=== PATIENT | female | born 1945 | race American Indian/Alaskan Native ===

== ENCOUNTER 2016-09-09 13:03 | Emergency (ER) | payer MEDICARE, OTHER ==
[2016-09-09] MEDS ORDERED: Sodium Chloride 0.9% 10 ML Syringe FLUSH PRN (13:17)
[2016-09-09] MEDS ORDERED: Dexamethasone 4 MG/ML SDV IVPUSH ONE (13:17)
--- NOTE | 2016-09-09 13:17 | EDM.PDOC ---
ED HPI GENERAL MEDICAL PROBLEM - General Chief Complaint: Neurological Problem Stated Complaint: Trigeminal neuralgia flare up Time Seen by Provider: 09/09/16 13:16 Source of Information: Reports: Patient, Family, Old records, RN, RN notes reviewed History Limitations: Reports: No limitations - History of Present Illness INITIAL COMMENTS - FREE TEXT/NARRATIVE: Arrives from home by POV with c/o severe Rt facial pain from an acute flare up of chronic trigeminal neuralgia. Pt follows with Dr. Loredo, who has referred her to [facility] for surgical tx due to failure of medical tx. This flare up began yesterday, and her home medications are not helping. Pt denies any other complaints. Pt reports the current Sx's are "exactly the same" as her usual trigeminal neuralgia flare ups. 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(s) Right Face Pain Score (Numeric/FACES): 10 - Related Data Allergies Allergy/AdvReac Type Severity Reaction Status Date / Time azithromycin Allergy Hives Verified 09/09/16 13:16 cephalexin Allergy Swelling Verified 09/09/16 13:16 levofloxacin [From Levaquin] Allergy Rash Verified 09/09/16 13:16 meperidine HCl [From Demerol] Allergy Airway Verified 09/09/16 13:16 Tightness Home Meds: Home Meds Gabapentin [Neurontin] 600 mg PO BID 10/31/13 [History] OXcarbazepine [Oxcarbazepine] 600 mg PO TID 10/31/13 [History] oxyCODONE 5 mg PO ASDIRECTED PRN 10/31/13 [History] traMADol [Ultram ER] 50 mg PO Q8HR PRN 10/31/13 [History] Omeprazole 20 mg PO DAILY 05/29/14 [History] ALPRAZolam [Alprazolam] 0.5 mg PO DAILY PRN 10/23/15 [History] Past Medical History HEENT History: Reports: None Cardiovascular History: Reports: None Respiratory History: Reports: None Gastrointestinal History: Reports: None 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 Musculoskeletal History: Reports: None Neurological History: Reports: Other (see below) Other Neuro History: trigeminal neuralgia Psychiatric History: Reports: None Endocrine/Metabolic History: Reports: None Hematologic History: Reports: None Immunologic History: Reports: None Oncologic (Cancer) History: Reports: None - Infectious Disease History Infectious Disease History: Reports: Measles - Past Surgical History GI Surgical History: Reports: Cholecystectomy, Hernia repair/other Neurological Surgical History: Reports: None Social & Family History - Family History Family Medical History: Noncontributory - Tobacco Use Smoking Status *Q: Never Smoker Second Hand Smoke Exposure: No - Alcohol Use Days Per Week of Alcohol Use: 0 - Recreational Drug Use Recreational Drug Use: No - Living Situation & Occupation Living situation: Reports: , with spouse Occupation: retired ED ROS GENERAL - Review of Systems Review Of Systems: ROS reveals no pertinent complaints other than HPI. ED EXAM, GENERAL - Physical Exam Exam: See Below Exam Limited By: Physical impairment (painful to speak) General Appearance: alert, WD/WN, anxious, moderate distress (due to pain) Eye Exam: bilateral eye: EOMI, normal inspection, PERRL Ears: normal external exam, hearing grossly normal Nose: normal inspection, normal mucosa, no blood Throat/Mouth: Normal inspection Head: atraumatic, normocephalic, facial tenderness (severe, acutely painful Rt face to light touch) Neck: normal inspection, supple, non-tender, full range of motion Respiratory/Chest: no respiratory distress, lungs clear, normal breath sounds, no accessory muscle use, chest non-tender Cardiovascular: regular rate, rhythm Neurological: alert, oriented, CN II-XII intact, normal cognition, normal gait Psychiatric: anxious, tearful Skin Exam: Warm, Dry, Intact, Normal color, No rash Course - Vital Signs Last Recorded V/S: Last Vital Signs Temp 36.2 C 09/09/16 13:18 Pulse 78 09/09/16 13:18 Resp 18 09/09/16 13:18 BP 161/86 H 09/09/16 13:18 Pulse Ox 96 09/09/16 13:18 - Orders/Labs/Meds Orders: Active Orders 24 hr Category Date Time Status Peripheral IV Care [RC] . DIRECTED Care 09/09/16 13:17 Active HYDROmorphone [Dilaudid] Med 09/09/16 15:30 Once 0.5 mg IVPUSH ONETIME ONE Sodium Chloride 0.9% [Saline Flush] Med 09/09/16 13:17 Active 10 ml FLUSH ASDIRECTED PRN Peripheral IV Insertion Adult [OM.PC] Stat Oth 09/09/16 13:17 Ordered Medication Orders Hydromorphone HCl (Dilaudid) 0.5 mg IVPUSH ONETIME ONE Stop: 09/09/16 15:31 Sodium Chloride (Saline Flush) 10 ml FLUSH ASDIRECTED PRN PRN Reason: Keep Vein Open Last Admin: 09/09/16 13:35 Dose: 10 ml Meds: Medications Generic Name Dose Route Start Last Admin Trade Name Freq PRN Reason Stop Dose Admin Hydromorphone HCl 0.5 mg 09/09/16 15:30 Dilaudid IVPUSH 09/09/16 15:31 ONETIME ONE Sodium Chloride 10 ml 09/09/16 13:17 09/09/16 13:35 Saline Flush FLUSH 10 ml ASDIRECTED PRN Administration Keep Vein Open Discontinued Medications Generic Name Dose Route Start Last Admin Trade Name Freq PRN Reason Stop Dose Admin Dexamethasone 10 mg 09/09/16 13:17 09/09/16 13:34 Dexamethasone IVPUSH 09/09/16 13:18 10 mg ONETIME ONE Administration Hydromorphone HCl 1 mg 09/09/16 13:18 09/09/16 13:30 Dilaudid IVPUSH 09/09/16 13:19 1 mg ONETIME ONE Administration Hydromorphone HCl 1 mg 09/09/16 13:58 09/09/16 14:02 Dilaudid IVPUSH 09/09/16 13:59 1 mg ONETIME ONE Administration Ketorolac Tromethamine 30 mg 09/09/16 14:44 09/09/16 14:52 Toradol IVPUSH 09/09/16 14:45 30 mg ONETIME ONE Administration Lidocaine HCl 15 ml 09/09/16 13:19 Xylocaine 2% Viscous PO 09/09/16 13:20 ONETIME ONE Lidocaine HCl 15 gm 09/09/16 13:19 Lidocaine 5% TOP 09/09/16 13:20 ONETIME ONE Ondansetron HCl 4 mg 09/09/16 14:44 09/09/16 14:52 Zofran IV 09/09/16 14:45 4 mg ONETIME ONE Administration Departure - Departure Time of Disposition: 16:00 Disposition: Home, Self-Care 01 Condition: fair Clinical Impression: Trigeminal neuralgia of right side of face, Trigeminal neuralgia pain Instructions: Trigeminal Neuralgia Forms: ED Department Discharge Additional Instructions: Follow up with Dr. Loredo and/or [facility] as planned. Return to ER pain is uncontrolled. - My Orders Last 24 Hours: My Active Orders 09/09/16 13:17 Peripheral IV Care [RC] . DIRECTED Sodium Chloride 0.9% [Saline Flush] 10 ml FLUSH ASDIRECTED PRN Peripheral IV Insertion Adult [OM.PC] Stat 09/09/16 15:30 HYDROmorphone [Dilaudid] 0.5 mg IVPUSH ONETIME ONE - Assessment/Plan Last 24 Hours: My Active Orders 09/09/16 13:17 Peripheral IV Care [RC] . DIRECTED Sodium Chloride 0.9% [Saline Flush] 10 ml FLUSH ASDIRECTED PRN Peripheral IV Insertion Adult [OM.PC] Stat 09/09/16 15:30 HYDROmorphone [Dilaudid] 0.5 mg IVPUSH ONETIME ONE
[2016-09-09] MEDS ORDERED: HYDROmorphone 1 MG/ML Syringe IVPUSH ONE ×3 (13:18→15:30)
[2016-09-09] MEDS ORDERED: Lidocaine 5% Oint 35.44 GM Tube TOP ONE (13:19)
[2016-09-09] MEDS ORDERED: Lidocaine 2% Viscous Solution 15 ML Cup PO ONE (13:19)
[2016-09-09] MEDS ORDERED: Ketorolac 30 MG/ML SDV IVPUSH ONE (14:44)
[2016-09-09] MEDS ORDERED: Ondansetron 4 MG/2 ML SDV IV ONE (14:44)
[2016-09-09 16:46] VITALS: BP 120/58
== END 2016-09-09 16:40 | disposition home or self-care (01) ==
LOC: DL.ED 13:03
DX: G50.0 Trigeminal neuralgia (principal); Z88.1 Allergy status to other antibiotic agents; Z88.8 Allergy status to other drugs, medicaments and biological substances; Z79.899 Other long term (current) drug therapy; Z90.49 Acquired absence of other specified parts of digestive tract
CPT/HCPCS: 96374; 96375; 96376; 99283; J1100; J1170; J1885; J2405; J7050; 99284; A9270-GY

== ENCOUNTER 2016-09-12 13:17 | Emergency (ER) | payer MEDICARE, OTHER ==
[2016-09-12] MEDS ORDERED: HYDROmorphone 1 MG/ML Syringe IVPUSH ONE ×3 (13:20→17:20)
[2016-09-12] MEDS ORDERED: Sodium Chloride 0.9% 10 ML Syringe FLUSH PRN (13:20)
[2016-09-12] MEDS ORDERED: Ketorolac 30 MG/ML SDV IVPUSH ONE (13:20)
--- NOTE | 2016-09-12 13:20 | EDM.PDOC ---
ED HPI NEURO - General Chief Complaint: Neuro Symptoms/Deficits Stated Complaint: teeth Time Seen by Provider: 09/12/16 13:19 Source of Information: Reports: Patient, Family, Old records, RN, RN notes reviewed History Limitations: Reports: No limitations - History of Present Illness INITIAL COMMENTS - FREE TEXT/NARRATIVE: Complaining of flare up of severe right face pain due to trigeminal neuralgia. Home meds are not helping. Patient has appointment with [facility] to have nerve surgery. Denies any new symptoms. Location (Neuro Complaint): Reports: face Severity: severe Improves with: Reports: None Worsens with: Reports: None Associated Symptoms: Reports: no other symptoms - Related Data Allergies/ADRs: Allergies Allergy/AdvReac Type Severity Reaction Status Date / Time azithromycin Allergy Hives Verified 09/09/16 13:16 cephalexin Allergy Swelling Verified 09/09/16 13:16 levofloxacin [From Levaquin] Allergy Rash Verified 09/09/16 13:16 meperidine HCl [From Demerol] Allergy Airway Verified 09/09/16 13:16 Tightness Home Meds: Home Meds Gabapentin [Neurontin] 600 mg PO BID 10/31/13 [History] OXcarbazepine [Oxcarbazepine] 600 mg PO TID 10/31/13 [History] oxyCODONE 5 mg PO ASDIRECTED PRN 10/31/13 [History] traMADol [Ultram ER] 50 mg PO Q8HR PRN 10/31/13 [History] Omeprazole 20 mg PO DAILY 05/29/14 [History] ALPRAZolam [Alprazolam] 0.5 mg PO DAILY PRN 10/23/15 [History] Past Medical History HEENT History: Reports: None Cardiovascular History: Reports: None Respiratory History: Reports: None Gastrointestinal History: Reports: None 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 Musculoskeletal History: Reports: None Neurological History: Reports: Other (see below) Other Neuro History: trigeminal neuralgia Psychiatric History: Reports: None Endocrine/Metabolic History: Reports: None Hematologic History: Reports: None Immunologic History: Reports: None Oncologic (Cancer) History: Reports: None - Infectious Disease History Infectious Disease History: Reports: Measles - Past Surgical History GI Surgical History: Reports: Cholecystectomy, Hernia repair/other Neurological Surgical History: Reports: None Social & Family History - Family History Family Medical History: Noncontributory - Tobacco Use Smoking Status *Q: Never Smoker Second Hand Smoke Exposure: No - Alcohol Use Days Per Week of Alcohol Use: 0 - Recreational Drug Use Recreational Drug Use: No - Living Situation & Occupation Living situation: Reports: , with spouse Occupation: retired ED ROS GENERAL - Review of Systems Review Of Systems: ROS reveals no pertinent complaints other than HPI. ED EXAM, NEURO - Physical Exam Exam: See Below Exam Limited By: No limitations General Appearance: obese (in acute distress secondary to pain at right face.) Eye Exam: bilateral eye: normal inspection Ears: normal external exam, normal canal, hearing grossly normal, normal TMs Nose: normal inspection, normal mucosa, no blood Throat/Mouth: Normal inspection, Normal lips, Normal teeth, Normal gums, Normal oropharynx, Normal voice, No airway compromise Head Exam: other (acute hypersensitive to touch or any tactile stimulant right face.) Neck: normal inspection, supple, non-tender, full range of motion Respiratory/Chest: no respiratory distress, lungs clear, normal breath sounds, no accessory muscle use, chest non-tender Cardiovascular: normal peripheral pulses, regular rate, rhythm, no edema, no gallop, no JVD, no murmur, no rub Neurological: other (other than right face as described in HEENT.) Back Exam: normal inspection, full range of motion, NT Extremities: normal inspection, normal range of motion, non-tender, no pedal edema, normal capillary refill Psychiatric: anxious, tearful Skin Exam: Warm Course - Vital Signs Last Recorded V/S: Last Vital Signs Temp 36.3 C 09/12/16 13:42 Pulse 96 09/12/16 13:42 Resp 20 09/12/16 13:42 BP 146/79 H 09/12/16 13:42 Pulse Ox 93 L 09/12/16 13:42 - Orders/Labs/Meds Orders: Active Orders 24 hr Category Date Time Status Peripheral IV Care [RC] . DIRECTED Care 09/12/16 13:21 Active Sodium Chloride 0.9% [Saline Flush] Med 09/12/16 13:20 Active 10 ml FLUSH ASDIRECTED PRN Peripheral IV Insertion Adult [OM.PC] Stat Oth 09/12/16 13:20 Ordered Medication Orders Sodium Chloride (Saline Flush) 10 ml FLUSH ASDIRECTED PRN PRN Reason: Keep Vein Open Last Admin: 09/12/16 14:12 Dose: 10 ml Meds: Medications Generic Name Dose Route Start Last Admin Trade Name Freq PRN Reason Stop Dose Admin Sodium Chloride 10 ml 09/12/16 13:20 09/12/16 14:12 Saline Flush FLUSH 10 ml ASDIRECTED PRN Administration Keep Vein Open Discontinued Medications Generic Name Dose Route Start Last Admin Trade Name Freq PRN Reason Stop Dose Admin Dexamethasone 10 mg 09/12/16 14:21 09/12/16 14:39 Dexamethasone IVPUSH 09/12/16 14:22 10 mg ONETIME ONE Administration Hydromorphone HCl 1 mg 09/12/16 13:20 09/12/16 14:06 Dilaudid IVPUSH 09/12/16 13:21 1 mg ONETIME ONE Administration Hydromorphone HCl 1 mg 09/12/16 14:21 09/12/16 15:12 Dilaudid IVPUSH 09/12/16 14:22 1 mg ONETIME ONE Administration Hydromorphone HCl 1 mg 09/12/16 17:20 09/12/16 17:49 Dilaudid IVPUSH 09/12/16 17:21 1 mg ONETIME ONE Administration Sodium Chloride 1,000 mls @ 999 mls/hr 09/12/16 13:44 09/12/16 14:11 Normal Saline IV 09/12/16 14:44 999 mls/hr .BOLUS ONE Administration Ketorolac Tromethamine 30 mg 09/12/16 13:20 09/12/16 14:11 Toradol IVPUSH 09/12/16 13:21 30 mg ONETIME ONE Administration Ondansetron HCl 4 mg 09/12/16 17:19 09/12/16 17:47 Zofran IV 09/12/16 17:20 4 mg ONETIME ONE Administration Phenytoin Sodium 250 mg 09/12/16 17:20 09/12/16 17:52 Phenytoin IVPUSH 09/12/16 17:21 250 mg ONETIME ONE Administration Departure - Departure Time of Disposition: 18:47 Disposition: Home, Self-Care 01 Condition: fair Clinical Impression: Trigeminal neuralgia of right side of face Instructions: Trigeminal Neuralgia Forms: ED Department Discharge Additional Instructions: Dilaudid 2mg. Follow up with your specialist as planned. - My Orders Last 24 Hours: My Active Orders 09/12/16 13:20 Sodium Chloride 0.9% [Saline Flush] 10 ml FLUSH ASDIRECTED PRN Peripheral IV Insertion Adult [OM.PC] Stat 09/12/16 13:21 Peripheral IV Care [RC] . DIRECTED - Assessment/Plan Last 24 Hours: My Active Orders 09/12/16 13:20 Sodium Chloride 0.9% [Saline Flush] 10 ml FLUSH ASDIRECTED PRN Peripheral IV Insertion Adult [OM.PC] Stat 09/12/16 13:21 Peripheral IV Care [RC] . DIRECTED
[2016-09-12 13:44] VITALS: BP 146/79
[2016-09-12] MEDS ORDERED: Sodium Chloride 0.9% 1,000 ML IV ONE (13:44)
[2016-09-12] MEDS ORDERED: Dexamethasone 4 MG/ML SDV IVPUSH ONE (14:21)
[2016-09-12] MEDS ORDERED: Ondansetron 4 MG/2 ML SDV IV ONE (17:19)
[2016-09-12] MEDS ORDERED: Phenytoin 250 MG/5 ML SDV IVPUSH ONE (17:20)
== END 2016-09-12 19:03 | disposition home or self-care (01) ==
LOC: DL.ED 13:17
DX: G50.0 Trigeminal neuralgia (principal); Z79.899 Other long term (current) drug therapy; Z90.49 Acquired absence of other specified parts of digestive tract; Z88.1 Allergy status to other antibiotic agents; Z88.8 Allergy status to other drugs, medicaments and biological substances
CPT/HCPCS: 96361; 96374; 96375; 96376; 99284; J1100; J1165; J1170; J1885; J2405; J7030; J7050

== ENCOUNTER 2016-09-13 00:50 | Emergency (ER) | payer MEDICARE, OTHER ==
[2016-09-13 01:05] VITALS: BP 135/85
[2016-09-13] MEDS ORDERED: LORazepam 2 MG/ML Syringe IVPUSH ONE (01:21)
[2016-09-13] MEDS ORDERED: HYDROmorphone 1 MG/ML Syringe IVPUSH ONE (01:21)
--- NOTE | 2016-09-13 01:24 | EDM.PDOC ---
ED HPI NEURO - General Chief Complaint: Neurological Problem Stated Complaint: GENERAL NEURALGIA ATTACK, [id number] Time Seen by Provider: 09/13/16 01:19 Source of Information: Reports: Patient, Family () History Limitations: Reports: No limitations - History of Present Illness INITIAL COMMENTS - FREE TEXT/NARRATIVE: 71 yo white female w/ PMHx. Right side facial Trigeminal Neuralgia. Pt. seen in this ED @ 2pm on Wednesday and treated w/ multiple medications. Symptoms returned late in PM. Symptom Onset Date: 09/13/16 Symptom Onset Time: 19:00 Timing/Duration: Reports: Hour(s): Location (Neuro Complaint): Reports: face (right side) Quality (Neuro Complaint): Reports: altered sensation, other (pain to right side of face) Worsens with: Reports: Movement Associated Symptoms: Reports: no other symptoms - Related Data Allergies/ADRs: Allergies Allergy/AdvReac Type Severity Reaction Status Date / Time azithromycin Allergy Hives Verified 09/13/16 01:01 cephalexin Allergy Swelling Verified 09/13/16 01:01 levofloxacin [From Levaquin] Allergy Rash Verified 09/13/16 01:01 meperidine HCl [From Demerol] Allergy Airway Verified 09/13/16 01:01 Tightness Home Meds: Home Meds Gabapentin [Neurontin] 600 mg PO BID 10/31/13 [History] OXcarbazepine [Oxcarbazepine] 600 mg PO TID 10/31/13 [History] oxyCODONE 5 mg PO ASDIRECTED PRN 10/31/13 [History] traMADol [Ultram ER] 50 mg PO Q8HR PRN 10/31/13 [History] Omeprazole 20 mg PO DAILY 05/29/14 [History] ALPRAZolam [Alprazolam] 0.5 mg PO DAILY PRN 10/23/15 [History] Past Medical History HEENT History: Reports: None Cardiovascular History: Reports: None Respiratory History: Reports: None Gastrointestinal History: Reports: None 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 Musculoskeletal History: Reports: None Neurological History: Reports: Other (see below) Other Neuro History: trigeminal neuralgia Psychiatric History: Reports: None Endocrine/Metabolic History: Reports: None Hematologic History: Reports: None Immunologic History: Reports: None Oncologic (Cancer) History: Reports: None - Infectious Disease History Infectious Disease History: Reports: Measles - Past Surgical History GI Surgical History: Reports: Cholecystectomy, Hernia repair/other Neurological Surgical History: Reports: None Social & Family History - Family History Family Medical History: Noncontributory - Tobacco Use Smoking Status *Q: Never Smoker Second Hand Smoke Exposure: No - Alcohol Use Days Per Week of Alcohol Use: 0 - Recreational Drug Use Recreational Drug Use: No - Living Situation & Occupation Living situation: Reports: , with spouse Occupation: retired ED ROS GENERAL - Review of Systems Review Of Systems: See Below Constitutional: Reports: no symptoms HEENT: Reports: Other (right sided facial pain) Respiratory: Reports: No Symptoms Cardiovascular: Reports: No symptoms Endocrine: Reports: no symptoms GI/Abdominal: Reports: No symptoms : Reports: no symptoms Musculoskeletal: Reports: other (right side face pain) Skin: Reports: no symptoms Neurological: Reports: Other (right side face pain) Psychiatric: Reports: No symptoms Hematologic/Lymphatic: Reports: no symptoms Immunologic: Reports: no symptoms ED EXAM, NEURO - Physical Exam Exam: See Below Exam Limited By: No limitations General Appearance: alert, no apparent distress Eye Exam: bilateral eye: PERRL Ears: normal external exam Nose: normal inspection Throat/Mouth: Normal inspection Head Exam: atraumatic Neck: normal inspection Respiratory/Chest: no respiratory distress Cardiovascular: normal peripheral pulses, regular rate, rhythm GI/Abdominal: normal bowel sounds Neurological: alert, other (right side face pain on palpation) Back Exam: normal inspection Extremities: normal inspection Psychiatric: normal affect Skin Exam: Warm, Normal color, No rash Course - Vital Signs Last Recorded V/S: Last Vital Signs Temp 36.4 C 09/13/16 01:01 Pulse 90 09/13/16 01:01 Resp 20 09/13/16 01:01 BP 135/85 09/13/16 01:01 Pulse Ox 97 09/13/16 01:01 Departure - Departure Time of Disposition: 01:28 Disposition: DC/Tfer to Acute Hospital 02 Condition: fair Clinical Impression: Trigeminal neuralgia of right side of face Forms: ED Department Discharge, Interfacility Transfer [facility]
[2016-09-13] MEDS ORDERED: Sodium Chloride 0.9% 1,000 ML IV SCH (01:30)
== END 2016-09-13 01:57 ==
LOC: DL.ED 00:50
DX: G50.0 Trigeminal neuralgia (principal); Z79.899 Other long term (current) drug therapy; Z88.1 Allergy status to other antibiotic agents; Z88.6 Allergy status to analgesic agent
CPT/HCPCS: 96374; 96375; 99284; J1170; J2060; J7030; 99285

== ENCOUNTER 2016-09-21 14:08 | Observation (INO) | payer MEDICARE, OTHER ==
[2016-09-21] MEDS ORDERED: HYDROmorphone 1 MG/ML Syringe IVPUSH ONE (14:38)
--- NOTE | 2016-09-21 15:19 | EDM.PDOC ---
ED HPI GENERAL MEDICAL PROBLEM - General Chief Complaint: General Stated Complaint: [id number] EXTREME PAIN Time Seen by Provider: 09/21/16 15:00 Source of Information: Reports: Patient, Family History Limitations: Reports: No limitations - History of Present Illness INITIAL COMMENTS - FREE TEXT/NARRATIVE: This 71 yo female patient reports to the ED with right sided Trigeminal Neuralgia pain. The patient has been seen multiple times for her pain and has been previously managed by Dr. Loredo. The patient reports she was transferred to [place] last week and is scheduled for a neurosurg consult on of this week. The patient has been taking her home medications, but has not been able to control her symptoms. 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 medication(s) Right Face Pain Score (Numeric/FACES): 10 - Related Data Allergies Allergy/AdvReac Type Severity Reaction Status Date / Time azithromycin Allergy Hives Verified 09/13/16 01:01 cephalexin Allergy Swelling Verified 09/13/16 01:01 levofloxacin [From Levaquin] Allergy Rash Verified 09/13/16 01:01 meperidine HCl [From Demerol] Allergy Airway Verified 09/13/16 01:01 Tightness Home Meds: Home Meds Gabapentin [Neurontin] 600 mg PO BID 10/31/13 [History] OXcarbazepine [Oxcarbazepine] 600 mg PO TID 10/31/13 [History] oxyCODONE 5 mg PO ASDIRECTED PRN 10/31/13 [History] traMADol [Ultram ER] 50 - 100 mg PO Q8HR PRN 10/31/13 [History] Omeprazole 20 mg PO DAILY 05/29/14 [History] ALPRAZolam [Alprazolam] 0.5 mg PO DAILY PRN 10/23/15 [History] Cefdinir [Cefdinir] 300 mg PO BID 09/21/16 [History] Levofloxacin [Levofloxacin] 500 mg PO DAILY 09/21/16 [History] Potassium 1 tab PO DAILY 09/21/16 [History] Past Medical History HEENT History: Reports: None Cardiovascular History: Reports: None Respiratory History: Reports: None Gastrointestinal History: Reports: None 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 Musculoskeletal History: Reports: None Neurological History: Reports: Other (see below) Other Neuro History: trigeminal neuralgia Psychiatric History: Reports: None Endocrine/Metabolic History: Reports: None Hematologic History: Reports: None Immunologic History: Reports: None Oncologic (Cancer) History: Reports: None - Infectious Disease History Infectious Disease History: Reports: Measles - Past Surgical History GI Surgical History: Reports: Cholecystectomy, Hernia repair/other Neurological Surgical History: Reports: None Social & Family History - Family History Family Medical History: Noncontributory - Tobacco Use Smoking Status *Q: Never Smoker Second Hand Smoke Exposure: No - Alcohol Use Days Per Week of Alcohol Use: 0 - Recreational Drug Use Recreational Drug Use: No - Living Situation & Occupation Living situation: Reports: , with spouse Occupation: retired ED ROS GENERAL - Review of Systems Review Of Systems: ROS reveals no pertinent complaints other than HPI. ED EXAM, GENERAL - Physical Exam Exam: See Below Exam Limited By: Other General Appearance: alert, WD/WN, severe distress Eye Exam: bilateral eye: EOMI, normal inspection, PERRL Ears: normal external exam, normal canal, hearing grossly normal, normal TMs Nose: normal inspection, normal mucosa, no blood Throat/Mouth: Normal inspection, Normal lips, Normal teeth, Normal gums, Normal oropharynx, Normal voice, No airway compromise Head: atraumatic, normocephalic Neck: normal inspection, supple, non-tender, full range of motion Respiratory/Chest: no respiratory distress, lungs clear, normal breath sounds, no accessory muscle use, chest non-tender Cardiovascular: normal peripheral pulses, regular rate, rhythm, no edema, no gallop, no JVD, no murmur, no rub GI/Abdominal: normal bowel sounds, soft, non tender, no organomegaly, no distention, no abnormal bruit, no mass (Female) Exam: Deferred Rectal (Female) Exam: Deferred Back Exam: normal inspection, full range of motion, NT Extremities: normal inspection, normal range of motion, non-tender, normal capillary refill, no pedal edema Neurological: alert, oriented, normal cognition, other (Trigeminal Neuralgia) Psychiatric: anxious, tearful Skin Exam: Warm, Dry, Intact, Normal color, No rash Lymphatic: no adenopathy Course - Vital Signs Last Recorded V/S: Last Vital Signs Temp 36.0 C 09/21/16 14:48 Pulse 87 09/21/16 14:48 Resp 16 09/21/16 14:48 BP 150/104 H 09/21/16 14:48 Pulse Ox 92 L 09/21/16 14:48 - Orders/Labs/Meds Meds: Medications Discontinued Medications Generic Name Dose Route Start Last Admin Trade Name Freq PRN Reason Stop Dose Admin Hydromorphone HCl 1 mg 09/21/16 14:38 09/21/16 14:42 Dilaudid IVPUSH 09/21/16 14:39 1 mg ONETIME ONE Administration - Re-Assessments/Exams Free Text/Narrative Re-Assessment/Exam: 09/21/16 15:23 While the patient was in the ED, a consult call was made to Dr. Loredo ( Neruologist with [facility] in [place]). Dr. Loredo advised that the patient has failed medical treatment and is supposed to be seen by Neurosurgery in [facility]). Departure - Departure Time of Disposition: 15:21 Disposition: Admitted As Inpatient 65 Condition: serious Clinical Impression: Trigeminal neuralgia of right side of face Forms: ED Department Discharge Care Plan Goals: Discussed the examination, history and treatments with Dr. Muñoz. Dr. Muñoz accepted the patient for pain management until further neurosurgical appointments can be made.
[2016-09-21] MEDS ORDERED: Ondansetron 4 MG Tab.DIS PO PRN (15:41)
[2016-09-21] MEDS ORDERED: Ondansetron 4 MG/2 ML SDV IVPUSH PRN (15:41)
[2016-09-21] MEDS ORDERED: Zolpidem 5 MG Tab PO PRN (15:41)
[2016-09-21] MEDS ORDERED: TRAMADOL 50 MG PO PRN (15:44)
[2016-09-21] MEDS ORDERED: ALPRAZolam 0.5 MG Tab PO PRN (15:44)
--- NOTE | 2016-09-21 15:53 | PCM.PN ---
- General Info Date of Service: 09/21/16 Admission Dx/Problem (Free Text): 71-year-old lady with a history of trigeminal neuralgia. The patient has been treated for many years and but in the past few weeks the pain has been getting worse She tried outpatient management but subsequently was admitted to the hospital in [place]. She was seen by Dr. Loredo who recommended a surgical evaluation. this was set up to be done in [place] next . The patient has been trying to oral medications at home but the pain has been severe. The pain is particularly bad during the night, with movements, has difficulty eating due to the pain The pain is sharp radiating to the right lower jaw. No associated nausea vomiting. The pain is somewhat better with pain medications but the patient came in with uncontrolled pain to the emergency room she has received IV Dilaudid and that helps somewhat with the pain Functional Status: Denies: pain controlled, tolerating diet - Review of Systems General: Denies: Fever Pulmonary: Denies: shortness of breath Cardiovascular: Denies: Chest Pain, Edema Neurological: Denies: Confusion - Patient Data Vitals - most recent: Last Vital Signs Temp 36.0 C 09/21/16 14:48 Pulse 87 09/21/16 14:48 Resp 16 09/21/16 14:48 BP 150/104 H 09/21/16 14:48 Pulse Ox 92 L 09/21/16 14:48 Weight - most recent: 83.915 kg Med Orders - Current: Current Medications Alprazolam (Xanax) 0.5 mg PO DAILY PRN PRN Reason: Anxiety Gabapentin (Neurontin) 600 mg PO BID [facility] Heparin Sodium (Porcine) (Heparin Sodium) 5,000 units SUBCUT Q8HR [facility] Hydromorphone HCl (Dilaudid) 0.5 mg IVPUSH Q4H PRN PRN Reason: Pain (severe 7-10) Levofloxacin (Levaquin) 500 mg PO DAILY [facility] Non-Formulary Medication (Oxcarbazepine [Oxcarbazepine]) 600 mg PO TID [facility] Non-Formulary Medication (Potassium [Potassium]) 1 tab PO DAILY [facility] Non-Formulary Medication (Oxycodone) 5 mg PO Q4HR PRN PRN Reason: Breakthrough Pain Non-Formulary Medication (Tramadol [Ultram Er]) 50 mg PO Q8HR PRN PRN Reason: moderate pain Omeprazole (Omeprazole) 20 mg PO DAILY [facility] Ondansetron HCl (Zofran Odt) 4 mg PO Q6H PRN PRN Reason: nausea, able to take PO Ondansetron HCl (Zofran) 4 mg IVPUSH Q6H PRN PRN Reason: Nausea/Vomiting Sodium Chloride (Saline Flush) 10 ml FLUSH ASDIRECTED PRN PRN Reason: Keep Vein Open Zolpidem Tartrate (Ambien) 5 mg PO BEDTIME PRN PRN Reason: Sleep Discontinued Medications Hydromorphone HCl (Dilaudid) 1 mg IVPUSH ONETIME ONE Stop: 09/21/16 14:39 Last Admin: 09/21/16 14:42 Dose: 1 mg - Exam General: alert, oriented HEENT: Other (right lower jaw is sensitive to touch but not red, ) Neck: supple Lungs: Clear to auscultation Cardiovascular: Regular Rate, Regular Rhythm Abdomen: bowel sounds present, soft, no tenderness, no distension Extremities: no edema Skin: warm, dry, intact Neurological: no new focal deficit Psy/Mental Status: alert, normal affect, normal mood - Problem List & Annotations (1) Trigeminal neuralgia of right side of face SNOMED Code(s): 87072314 Code(s): G50.0 - TRIGEMINAL NEURALGIA Status: Acute Current Visit: Yes - Problem List Review Problem List Initiated/Reviewed/Updated: Yes - My Orders Last 24 Hours: My Active Orders 09/21/16 15:41 Patient Status [ADT] Routine Oxygen Therapy [RC] PRN Up With Assistance [RC] ASDIRECTED VTE/DVT Education [RC] PER UNIT ROUTINE Vital Signs [RC] Q4H HYDROmorphone [Dilaudid] 0.5 mg IVPUSH Q4H PRN Ondansetron [Zofran ODT] 4 mg PO Q6H PRN Ondansetron [Zofran] 4 mg IVPUSH Q6H PRN Sodium Chloride 0.9% [Saline Flush] 10 ml FLUSH ASDIRECTED PRN Zolpidem [Ambien] 5 mg PO BEDTIME PRN Peripheral IV Insertion Adult [OM.PC] Routine Saline Lock Insert [OM.PC] Routine Resuscitation Status Routine 09/21/16 15:42 Antiembolic Hose [OM.PC] Per Unit Routine 09/21/16 15:43 Antiembolic Devices [RC] PER UNIT ROUTINE Peripheral IV Care [RC] . DIRECTED 09/21/16 15:44 ALPRAZolam [Xanax] 0.5 mg PO DAILY PRN oxyCODONE 5 mg PO Q4HR PRN traMADol [Ultram ER] 50 mg PO Q8HR PRN 09/21/16 21:00 Gabapentin [Neurontin] 600 mg PO BID OXcarbazepine [Oxcarbazepine] 600 mg PO TID 09/21/16 22:00 Heparin Sodium 5,000 units SUBCUT Q8HR 09/21/16 Dinner Mechanical Soft Diet [DIET] 09/22/16 05:15 BASIC METABOLIC PANEL,BMP [CHEM] AM CBC WITH AUTO DIFF [HEME] AM 09/22/16 09:00 Levofloxacin [Levaquin] 500 mg PO DAILY Omeprazole 20 mg PO DAILY Potassium [Potassium] 1 tab PO DAILY - Assessment Assessment:: 1 trigeminal neuralgia with uncontrolled pain We'll admit the patient and to try to improve her pain control Use IV Dilaudid as needed Continue p.r.n. oral oxycodone and the Ultram Continue with Neurontin, Oxycarbamazepine 2. the patient is scheduled to followup with surgery on in [place] 3. DVT prophylaxis will be a subcutaneous heparin
--- NOTE | 2016-09-21 15:56 | PCM.HP ---
H&P History of Present Illness - General Date of Service: 09/21/16 Admit Problem/Dx: 71-year-old lady with a history of trigeminal neuralgia. Source of Information: Patient, Family - History of Present Illness Initial Comments - Free Text/Narative: The patient has been treated for many years and but in the past few weeks the pain has been getting worse She tried outpatient management but subsequently was admitted to the hospital in [place]. She was seen by Dr. Loredo who recommended a surgical evaluation. this was set up to be done in [place] next . The patient has been trying to oral medications at home but the pain has been severe. The pain is particularly bad during the night, with movements, has difficulty eating due to the pain The pain is sharp radiating to the right lower jaw. No associated nausea vomiting. The pain is somewhat better with pain medications but the patient came in with uncontrolled pain to the emergency room she has received IV Dilaudid and that helps somewhat with the pain Right Face Pain Score (Numeric/FACES): 10 - Related Data Allergies/Adverse Reactions: Allergies Allergy/AdvReac Type Severity Reaction Status Date / Time azithromycin Allergy Hives Verified 09/13/16 01:01 cephalexin Allergy Swelling Verified 09/13/16 01:01 levofloxacin [From Levaquin] Allergy Rash Verified 09/13/16 01:01 meperidine HCl [From Demerol] Allergy Airway Verified 09/13/16 01:01 Tightness Home Medications: Home Meds Gabapentin [Neurontin] 600 mg PO BID 10/31/13 [History] OXcarbazepine [Oxcarbazepine] 600 mg PO TID 10/31/13 [History] oxyCODONE 5 mg PO ASDIRECTED PRN 10/31/13 [History] traMADol [Ultram ER] 50 - 100 mg PO Q8HR PRN 10/31/13 [History] Omeprazole 20 mg PO DAILY 05/29/14 [History] ALPRAZolam [Alprazolam] 0.5 mg PO DAILY PRN 10/23/15 [History] Cefdinir [Cefdinir] 300 mg PO BID 09/21/16 [History] Levofloxacin [Levofloxacin] 500 mg PO DAILY 09/21/16 [History] Potassium 1 tab PO DAILY 09/21/16 [History] Past Medical History HEENT History: Reports: Cataract, Other (see below) Other HEENT History: dry eyes Cardiovascular History: Reports: None Respiratory History: Reports: None Gastrointestinal History: Reports: None [employer] History: Reports: Musculoskeletal History: Reports: None Neurological History: Reports: Other (see below) Other Neuro History: trigeminal neuralgia Psychiatric History: Reports: None Endocrine/Metabolic History: Reports: None Hematologic History: Reports: None Immunologic History: Reports: None Oncologic (Cancer) History: Reports: None - Infectious Disease History Infectious Disease History: Reports: Measles - Past Surgical History HEENT Surgical History: Reports: Cataract surgery GI Surgical History: Reports: Cholecystectomy, Hernia repair/other Neurological Surgical History: Reports: None Social & Family History - Family History Family Medical History: Noncontributory - Tobacco Use Smoking Status *Q: Never Smoker Second Hand Smoke Exposure: No - Alcohol Use Days Per Week of Alcohol Use: 0 - Recreational Drug Use Recreational Drug Use: No - Living Situation & Occupation Living situation: Reports: , with spouse Occupation: retired H&P Review of Systems - Review of Systems: Review Of Systems: See Below General: Denies: fever HEENT: Denies: vertigo Pulmonary: Denies: Shortness of Breath Cardiovascular: Denies: chest pain Gastrointestinal: Denies: Abdominal pain Musculoskeletal: Denies: neck pain Psychiatric: Denies: confusion, depression Exam - Exam Exam: See Below - Vital Signs Vital Signs: Last Vital Signs Temp 36.0 C 09/21/16 14:48 Pulse 87 09/21/16 14:48 Resp 16 09/21/16 14:48 BP 150/104 H 09/21/16 14:48 Pulse Ox 92 L 09/21/16 14:48 Weight: 83.915 kg - Exam General: alert, oriented HEENT: Other (tenderness to right jaw) Neck: supple, trachea midline, 2 Lungs: Clear to auscultation, Normal respiratory effort Cardiovascular: regular rate, regular rhythm Abdomen: normal bowel sounds, soft Extremities: 3, normal inspection, 10 Skin: warm, dry, intact Neurological: other (right jaw area tenderness to touch) Neuro Extensive - Mental Status: alert, oriented x3, normal mood/affect, normal cognition Psychiatric: alert, normal affect, normal mood *Q Meaningful Use (ADM) - VTE *Q VTE Criteria *Q: - Stroke *Q Stroke Criteria *Q: - AMI *Q AMI Criteria *Q: - Problem List (1) Trigeminal neuralgia of right side of face SNOMED Code(s): 41262990 ICD Code: G50.0 - TRIGEMINAL NEURALGIA Status: Acute Current Visit: Yes Problem List Initiated/Reviewed/Updated: Yes Orders Last 24hrs: Active Orders 24 hr Category Date Time Status Patient Status [ADT] Routine ADT 09/21/16 15:41 Ordered Antiembolic Devices [RC] PER UNIT ROUTINE Care 09/21/16 15:43 Ordered Oxygen Therapy [RC] PRN Care 09/21/16 15:41 Ordered Peripheral IV Care [RC] . DIRECTED Care 09/21/16 15:43 Ordered Up With Assistance [RC] ASDIRECTED Care 09/21/16 15:41 Ordered VTE/DVT Education [RC] PER UNIT ROUTINE Care 09/21/16 15:41 Ordered Vital Signs [RC] Q4H Care 09/21/16 15:41 Ordered Mechanical Soft Diet [DIET] Diet 09/21/16 Dinner Ordered BASIC METABOLIC PANEL,BMP [CHEM] AM Lab 09/22/16 05:15 Ordered CBC WITH AUTO DIFF [HEME] AM Lab 09/22/16 05:15 Ordered ALPRAZolam [Xanax] Med 09/21/16 15:44 Ordered 0.5 mg PO DAILY PRN Gabapentin [Neurontin] Med 09/21/16 21:00 Ordered 600 mg PO BID HYDROmorphone [Dilaudid] Med 09/21/16 15:41 Ordered 0.5 mg IVPUSH Q4H PRN Heparin Sodium Med 09/21/16 22:00 Ordered 5,000 units SUBCUT Q8HR Levofloxacin [Levaquin] Med 09/22/16 09:00 Ordered 500 mg PO DAILY OXcarbazepine [Oxcarbazepine] Med 09/21/16 21:00 Ordered 600 mg PO TID Omeprazole Med 09/22/16 09:00 Ordered 20 mg PO DAILY Ondansetron [Zofran ODT] Med 09/21/16 15:41 Ordered 4 mg PO Q6H PRN Ondansetron [Zofran] Med 09/21/16 15:41 Ordered 4 mg IVPUSH Q6H PRN Potassium [Potassium] Med 09/22/16 09:00 Ordered 1 tab PO DAILY Sodium Chloride 0.9% [Saline Flush] Med 09/21/16 15:41 Ordered 10 ml FLUSH ASDIRECTED PRN Zolpidem [Ambien] Med 09/21/16 15:41 Ordered 5 mg PO BEDTIME PRN oxyCODONE Med 09/21/16 15:44 Ordered 5 mg PO Q4HR PRN traMADol [Ultram ER] Med 09/21/16 15:44 Ordered 50 mg PO Q8HR PRN Antiembolic Hose [OM.PC] Per Unit Routine Oth 09/21/16 15:42 Ordered Peripheral IV Insertion Adult [OM.PC] Routine Oth 09/21/16 15:41 Ordered Saline Lock Insert [OM.PC] Routine Oth 09/21/16 15:41 Ordered Resuscitation Status Routine Resus Stat 09/21/16 15:41 Ordered Medication Orders Alprazolam (Xanax) 0.5 mg PO DAILY PRN PRN Reason: Anxiety Gabapentin (Neurontin) 600 mg PO BID [facility] Heparin Sodium (Porcine) (Heparin Sodium) 5,000 units SUBCUT Q8HR [facility] Hydromorphone HCl (Dilaudid) 0.5 mg IVPUSH Q4H PRN PRN Reason: Pain (severe 7-10) Levofloxacin (Levaquin) 500 mg PO DAILY [facility] Non-Formulary Medication (Potassium [Potassium]) 1 tab PO DAILY [facility] Non-Formulary Medication (Oxycodone) 5 mg PO Q4HR PRN PRN Reason: Breakthrough Pain Non-Formulary Medication (Tramadol [Ultram Er]) 50 mg PO Q8HR PRN PRN Reason: moderate pain Omeprazole (Omeprazole) 20 mg PO DAILY [facility] Ondansetron HCl (Zofran Odt) 4 mg PO Q6H PRN PRN Reason: nausea, able to take PO Ondansetron HCl (Zofran) 4 mg IVPUSH Q6H PRN PRN Reason: Nausea/Vomiting Oxcarbazepine (Trileptal) 600 mg PO TID [facility] Sodium Chloride (Saline Flush) 10 ml FLUSH ASDIRECTED PRN PRN Reason: Keep Vein Open Zolpidem Tartrate (Ambien) 5 mg PO BEDTIME PRN PRN Reason: Sleep Assessment/Plan Comment:: 1 trigeminal neuralgia with uncontrolled pain We'll admit the patient and to try to improve her pain control Use IV Dilaudid as needed Continue p.r.n. oral oxycodone and the Ultram Continue with Neurontin, Oxycarbamazepine 2. the patient is scheduled to followup with surgery on in [place] 3. recent pneumonia Continue levofloxacin 4. DVT prophylaxis will be a subcutaneous heparin
[2016-09-21] MEDS ORDERED: Polyethylene Glycol 3350 Powder 17 GM Packet PO PRN (16:11)
[2016-09-21] MEDS: HYDROmorphone 1 MG/ML Syringe IVPUSH PRN ×2 (16:31→20:32)
[2016-09-21] MEDS: Sodium Chloride 0.9% 10 ML Syringe FLUSH PRN ×2 (16:32→20:31)
[2016-09-21] MEDS: OXcarbazepine 300 MG Tab PO SCH ×2 (16:38→21:12)
[2016-09-21] MEDS: Gabapentin 300 MG Cap PO SCH (16:38)
[2016-09-21] MEDS: traMADol 50 MG Tab PO PRN (16:47)
[2016-09-21] MEDS: oxyCODONE 5 MG Tab PO PRN ×2 (18:46→23:04)
[2016-09-21] MEDS: Heparin Sodium 5,000 Units/ML Vial SUBCUT SCH (21:12)
[2016-09-22] MEDS: Gabapentin 300 MG Cap PO SCH ×2 (04:12→15:57)
[2016-09-22] MEDS: traMADol 50 MG Tab PO PRN ×2 (04:13→15:56)
[2016-09-22] MEDS: oxyCODONE 5 MG Tab PO PRN ×4 (04:32→18:00)
[2016-09-22] MEDS: Heparin Sodium 5,000 Units/ML Vial SUBCUT SCH ×3 (05:41→21:12)
[2016-09-22] MEDS: HYDROmorphone 1 MG/ML Syringe IVPUSH PRN ×2 (05:42→11:21)
[2016-09-22] MEDS: Sodium Chloride 0.9% 10 ML Syringe FLUSH PRN ×2 (05:43→11:23)
[2016-09-22] MEDS: Omeprazole 20 MG Cap.CR PO SCH ×2 (05:46→06:34)
[2016-09-22 07:00] LABS: CHLORIDE,CL 101 mmol/L (101-111); SODIUM,NA 135 mmol/L (135-145)
[2016-09-22] MEDS ORDERED: Non-Formulary Medication 1 Each (Potassium [Potassium] 1 TAB) PO SCH (09:00)
[2016-09-22] MEDS: OXcarbazepine 300 MG Tab PO SCH ×3 (09:25→21:08)
[2016-09-22] MEDS: Potassium Chloride 10 MEQ Tab.ER PO SCH (09:25)
[2016-09-22] MEDS: Levofloxacin 500 MG Tab PO SCH (09:25)
--- NOTE | 2016-09-22 10:59 | PCM.PN ---
- General Info Date of Service: 09/22/16 Admission Dx/Problem (Free Text): 71-year-old lady with a history of trigeminal neuralgia presented with intolerable r. jaw pain. Subjective Update: the r. jaw pain has improved from"15" to "9" was able to sleep eating better no associated H/A, no fever pain has been acute on chronic better with IV Dilaudid using ultram and oxycodone, PO dilaudid did not work Functional Status: Reports: tolerating diet - Review of Systems General: Denies: Fever HEENT: Denies: headaches Pulmonary: Denies: shortness of breath Cardiovascular: Denies: Chest Pain Gastrointestinal: Denies: Abdominal pain Genitourinary: Denies: dysuria Neurological: Denies: Confusion, Dizziness - Patient Data Vitals - most recent: Last Vital Signs Temp 37.0 C 09/22/16 07:00 Pulse 66 09/22/16 07:00 Resp 20 09/22/16 07:00 BP 121/66 09/22/16 07:00 Pulse Ox 93 L 09/22/16 07:00 Weight - most recent: 80.966 kg I&O - last 24 hours: Intake & Output 09/21/16 09/22/16 09/22/16 22:59 06:59 14:59 Intake Total 100 800 Balance 100 800 Lab Results last 24 hrs: Laboratory Results - last 24 hr 09/22/16 09/22/16 Range/Units 06:25 06:25 WBC 5.8 (5.0-10.0) 10^3/uL RBC 4.24 (4.2-5.4) 10^6/uL Hgb 12.4 (12.0-16.0) g/dL Hct 39.1 (37.0-47.0) % MCV 92.2 (80-100) fL MCH 29.2 (27.0-34.0) pg MCHC 31.7 L (33.0-35.0) g/dL Plt Count 184 (150-450) 10^3/uL Neut % (Auto) 48.1 (42.2-75.2) % Lymph % (Auto) 32.5 (20.5-50.1) % [place] % (Auto) 14.3 H (2-8) % Eos % (Auto) 4.8 H (1.0-3.0) % Baso % (Auto) 0.3 (0.0-1.0) % Sodium 135 (135-145) mmol/L Potassium 4.1 (3.6-5.0) mmol/L Chloride 101 (101-111) mmol/L Carbon Dioxide 30.0 (21.0-31.0) mmol/L Anion Gap 8.1 BUN 13 (7-18) mg/dL Creatinine 0.6 (0.6-1.3) mg/dL Est Cr Clr Drug Dosing TNP Estimated GFR (MDRD) > 60 Glucose 91 (74-105) mg/dL Calcium 8.8 (8.4-10.2) mg/dl Med Orders - Current: Current Medications Alprazolam (Xanax) 0.5 mg PO DAILY PRN PRN Reason: Anxiety Gabapentin (Neurontin) 600 mg PO BID@0400,1600 [facility] Last Admin: 09/22/16 04:12 Dose: 600 mg Heparin Sodium (Porcine) (Heparin Sodium) 5,000 units SUBCUT Q8HR [facility] Last Admin: 09/22/16 05:41 Dose: 5,000 units Hydromorphone HCl (Dilaudid) 0.5 mg IVPUSH Q4H PRN PRN Reason: Pain (severe 7-10) Last Admin: 09/22/16 05:42 Dose: 0.5 mg Levofloxacin (Levaquin) 500 mg PO DAILY [facility] Last Admin: 09/22/16 09:25 Dose: 500 mg Omeprazole (Omeprazole) 20 mg PO DAILY@0700 [facility] Last Admin: 09/22/16 06:34 Dose: Not Given Ondansetron HCl (Zofran Odt) 4 mg PO Q6H PRN PRN Reason: nausea, able to take PO Ondansetron HCl (Zofran) 4 mg IVPUSH Q6H PRN PRN Reason: Nausea/Vomiting Oxcarbazepine (Trileptal) 600 mg PO TID [facility] Last Admin: 09/22/16 09:25 Dose: 600 mg Oxycodone HCl (Oxycodone) 5 mg PO Q4HR PRN PRN Reason: Breakthrough Pain Last Admin: 09/22/16 09:31 Dose: 5 mg Polyethylene Glycol (Miralax) 17 gm PO DAILY PRN PRN Reason: Constipation Potassium Chloride (Klor-Con 10) 20 meq PO WITHBREAKFAST [facility] Last Admin: 09/22/16 09:25 Dose: 20 meq Sodium Chloride (Saline Flush) 10 ml FLUSH ASDIRECTED PRN PRN Reason: Keep Vein Open Last Admin: 09/22/16 05:43 Dose: 10 ml Tramadol HCl (Ultram) 50 mg PO Q8H PRN PRN Reason: moderate pain Last Admin: 09/22/16 04:13 Dose: 50 mg Zolpidem Tartrate (Ambien) 5 mg PO BEDTIME PRN PRN Reason: Sleep Discontinued Medications Hydromorphone HCl (Dilaudid) 1 mg IVPUSH ONETIME ONE Stop: 09/21/16 14:39 Last Admin: 09/21/16 14:42 Dose: 1 mg Non-Formulary Medication (Potassium [Potassium]) 1 tab PO DAILY [facility] Non-Formulary Medication (Tramadol [Ultram Er]) 50 mg PO Q8HR PRN PRN Reason: moderate pain - Exam Quality Assessment: No: supplemental oxygen General: alert, oriented HEENT: Other (r. jaw pain with touch) Neck: supple Lungs: Clear to auscultation, Normal respiratory effort Cardiovascular: Regular Rate, Regular Rhythm Abdomen: bowel sounds present, soft, no tenderness, no distension Back Exam: normal inspection, full range of motion Extremities: no edema Skin: warm, dry, intact Neurological: no new focal deficit Psy/Mental Status: alert, normal affect, normal mood - Problem List & Annotations (1) Trigeminal neuralgia of right side of face SNOMED Code(s): 41358313 Code(s): G50.0 - TRIGEMINAL NEURALGIA Status: Acute Current Visit: Yes - Problem List Review Problem List Initiated/Reviewed/Updated: Yes - My Orders Last 24 Hours: My Active Orders 09/21/16 15:41 Patient Status [ADT] Routine Oxygen Therapy [RC] PRN Up With Assistance [RC] ASDIRECTED VTE/DVT Education [RC] PER UNIT ROUTINE Vital Signs [RC] Q4H HYDROmorphone [Dilaudid] 0.5 mg IVPUSH Q4H PRN Ondansetron [Zofran ODT] 4 mg PO Q6H PRN Ondansetron [Zofran] 4 mg IVPUSH Q6H PRN Sodium Chloride 0.9% [Saline Flush] 10 ml FLUSH ASDIRECTED PRN Zolpidem [Ambien] 5 mg PO BEDTIME PRN Peripheral IV Insertion Adult [OM.PC] Routine Saline Lock Insert [OM.PC] Routine Resuscitation Status Routine 09/21/16 15:42 Antiembolic Hose [OM.PC] Per Unit Routine 09/21/16 15:43 Antiembolic Devices [RC] PER UNIT ROUTINE Peripheral IV Care [RC] 09/21/16 15:44 ALPRAZolam [Xanax] 0.5 mg PO DAILY PRN oxyCODONE 5 mg PO Q4HR PRN 09/21/16 16:11 Polyethylene Glycol 3350 [MiraLAX] 17 gm PO DAILY PRN 09/21/16 16:24 traMADol [Ultram] 50 mg PO Q8H PRN 09/21/16 16:30 Gabapentin [Neurontin] 600 mg PO BID@0400,1600 OXcarbazepine [Trileptal] 600 mg PO TID 09/21/16 22:00 Heparin Sodium 5,000 units SUBCUT Q8HR 09/21/16 Dinner Mechanical Soft Diet [DIET] 09/22/16 07:00 Omeprazole 20 mg PO DAILY@0700 09/22/16 08:00 Potassium Chloride [Klor-Con 10] 20 meq PO WITHBREAKFAST 09/22/16 09:00 Levofloxacin [Levaquin] 500 mg PO DAILY 09/22/16 10:51 Dietary Supplements [RC] BIDMEALS - Plan Plan:: 1 trigeminal neuralgia with uncontrolled pain improved but still severe will use scheduled Neurontin, trileptal Use scheduled twice daily ultram add oxycodone prn in between Use IV Dilaudid as needed 2. the patient is scheduled to followup with surgery on in [place] 3. recent pneumonia Continue levofloxacin 4. DVT prophylaxis will be a subcutaneous heparin
[2016-09-22] MEDS ORDERED: Fluconazole 100 MG Tab PO ONE (12:00)
[2016-09-23] MEDS: Gabapentin 300 MG Cap PO SCH (03:44)
[2016-09-23] MEDS: oxyCODONE 5 MG Tab PO PRN ×2 (04:27→09:20)
[2016-09-23] MEDS: Heparin Sodium 5,000 Units/ML Vial SUBCUT SCH (06:05)
[2016-09-23] MEDS: Omeprazole 20 MG Cap.CR PO SCH (06:06)
[2016-09-23 07:24] VITALS: BP 127/58
[2016-09-23] MEDS: Potassium Chloride 10 MEQ Tab.ER PO SCH (09:09)
[2016-09-23] MEDS: OXcarbazepine 300 MG Tab PO SCH (09:10)
[2016-09-23] MEDS: Levofloxacin 500 MG Tab PO SCH (09:10)
--- NOTE | 2016-09-23 11:01 | PCM.DCSUM1 ---
Discharge Summary - Hospital Course Free Text/Narrative:: presented with acute on chronic pain of the right jaw area 1 trigeminal neuralgia with uncontrolled pain improved will use scheduled Neurontin, trileptal Use scheduled twice daily ultram added oxycodone prn in between the patient has appointment with neurosurgery in [place] tomorrow for now he appears that the patient's pain has improved that she will be able to manage this as outpatient 2. recent pneumonia Continue levofloxacin - Discharge Data Discharge Date: 09/23/16 Discharge Disposition: Home, Self-Care 01 Condition: Good - Discharge Diagnosis/Problem(s) (1) Trigeminal neuralgia of right side of face SNOMED Code(s): 59460715 ICD Code: G50.0 - TRIGEMINAL NEURALGIA Status: Acute Current Visit: Yes - Patient Instructions Diet: Heart Healthy Diet Activity: As Tolerated - Discharge Plan Prescriptions/Med Rec: oxyCODONE 5 mg PO Q6H PRN #22 tablet PRN Reason: severe jaw pain Home Medications: Home Meds Gabapentin [Neurontin] 600 mg PO BID 10/31/13 [History] OXcarbazepine [Oxcarbazepine] 600 mg PO TID 10/31/13 [History] traMADol [Ultram ER] 50 - 100 mg PO Q8HR PRN 10/31/13 [History] Omeprazole 20 mg PO DAILY 05/29/14 [History] ALPRAZolam [Alprazolam] 0.5 mg PO DAILY PRN 10/23/15 [History] Levofloxacin 500 mg PO DAILY 09/21/16 [History] Polyethylene Glycol 3350 [MiraLAX] 17 gm PO DAILY PRN 09/21/16 [History] Potassium 1 tab PO DAILY 09/21/16 [History] oxyCODONE 5 mg PO Q6H PRN #22 tablet 09/23/16 [Rx] - Discharge Summary/Plan Comment DC Time >30 min.: No - General Info Functional Status: Reports: pain controlled - Review of Systems General: Denies: Fever Pulmonary: Denies: shortness of breath Cardiovascular: Denies: Chest Pain Gastrointestinal: Denies: Abdominal pain - Patient Data Vitals - Most Recent: Last Vital Signs Temp 36.8 C 09/23/16 07:00 Pulse 68 09/23/16 07:00 Resp 20 09/23/16 07:00 BP 127/58 L 09/23/16 07:00 Pulse Ox 93 L 09/23/16 07:00 Weight - Most Recent: 81.828 kg I&O - Last 24 hours: Intake & Output 09/22/16 09/23/16 09/23/16 22:59 06:59 14:59 Intake Total 800 150 Balance 800 150 Med Orders - Current: Current Medications Alprazolam (Xanax) 0.5 mg PO DAILY PRN PRN Reason: Anxiety Last Admin: 09/22/16 21:08 Dose: 0.5 mg Gabapentin (Neurontin) 600 mg PO BID@0400,1600 [facility] Last Admin: 09/23/16 03:44 Dose: 600 mg Heparin Sodium (Porcine) (Heparin Sodium) 5,000 units SUBCUT Q8HR [facility] Last Admin: 09/23/16 06:05 Dose: 5,000 units Hydromorphone HCl (Dilaudid) 0.5 mg IVPUSH Q4H PRN PRN Reason: Pain (severe 7-10) Last Admin: 09/22/16 11:21 Dose: 0.5 mg Levofloxacin (Levaquin) 500 mg PO DAILY [facility] Last Admin: 09/23/16 09:10 Dose: 500 mg Omeprazole (Omeprazole) 20 mg PO DAILY@0700 [facility] Last Admin: 09/23/16 06:06 Dose: 20 mg Ondansetron HCl (Zofran Odt) 4 mg PO Q6H PRN PRN Reason: nausea, able to take PO Ondansetron HCl (Zofran) 4 mg IVPUSH Q6H PRN PRN Reason: Nausea/Vomiting Oxcarbazepine (Trileptal) 600 mg PO TID [facility] Last Admin: 09/23/16 09:10 Dose: 600 mg Oxycodone HCl (Oxycodone) 5 mg PO Q4HR PRN PRN Reason: Breakthrough Pain Last Admin: 09/23/16 09:20 Dose: 5 mg Polyethylene Glycol (Miralax) 17 gm PO DAILY PRN PRN Reason: Constipation Last Admin: 09/22/16 17:03 Dose: 17 gm Potassium Chloride (Klor-Con 10) 20 meq PO WITHBREAKFAST [facility] Last Admin: 09/23/16 09:09 Dose: 20 meq Sodium Chloride (Saline Flush) 10 ml FLUSH ASDIRECTED PRN PRN Reason: Keep Vein Open Last Admin: 09/22/16 11:23 Dose: 10 ml Tramadol HCl (Ultram) 50 mg PO Q8H PRN PRN Reason: moderate pain Last Admin: 09/22/16 15:56 Dose: 50 mg Zolpidem Tartrate (Ambien) 5 mg PO BEDTIME PRN PRN Reason: Sleep Discontinued Medications Fluconazole (Diflucan) 100 mg PO ONETIME ONE Stop: 09/22/16 12:01 Last Admin: 09/22/16 12:33 Dose: 100 mg Hydromorphone HCl (Dilaudid) 1 mg IVPUSH ONETIME ONE Stop: 09/21/16 14:39 Last Admin: 09/21/16 14:42 Dose: 1 mg Non-Formulary Medication (Potassium [Potassium]) 1 tab PO DAILY [facility] Non-Formulary Medication (Tramadol [Ultram Er]) 50 mg PO Q8HR PRN PRN Reason: moderate pain - Exam General: Reports: alert, oriented Neck: Reports: supple Lungs: Reports: Clear to auscultation, Normal respiratory effort Cardiovascular: Reports: Regular Rate, Regular Rhythm Abdomen: Reports: bowel sounds present, soft, no tenderness, no distension Back Exam: Reports: normal inspection, full range of motion Extremities: Reports: no edema, normal pulses Skin: Reports: warm, dry, intact *Q Meaningful Use (DIS) - VTE *Q VTE Criteria *Q: - Stroke *Q Stroke Criteria *Q: - AMI *Q AMI Criteria *Q:
== END 2016-09-23 11:55 | disposition home or self-care (01) ==
LOC: DL.ED 14:08 → DL.MS 15:17 → UNDOADMIN 15:17 → INTOOBSV 15:17
PROVIDERS: ADMIT Internal Medicine; ATTEND Internal Medicine
DX: G50.0 Trigeminal neuralgia (principal); G89.29 Other chronic pain; J18.9 Pneumonia, unspecified organism; Z79.899 Other long term (current) drug therapy; Z88.1 Allergy status to other antibiotic agents; Z88.6 Allergy status to analgesic agent
CPT/HCPCS: 36415; 80048; 85025; 96374; 99284; A9270; J1170; J1644; J7050; 96372; 96375; 96376; 99217; 99226; G0378

== ENCOUNTER 2016-11-12 16:11 | Emergency (ER) | payer MEDICARE, OTHER ==
--- NOTE | 2016-11-12 16:15 | EDM.PDOC ---
<Babar Delaney - Last Filed: 11/12/16 19:20> ED HPI GENERAL MEDICAL PROBLEM - General Chief Complaint: ENT Problem Stated Complaint: [id number] NERVE EXTREME PAIN CAN'T OPEN MOUTH Time Seen by Provider: 11/12/16 16:15 Source of Information: Reports: Patient, Family, RN, RN Notes Reviewed History Limitations: Reports: No Limitations Right Face Pain Score (Numeric/FACES): 10 - Related Data Allergies Allergy/AdvReac Type Severity Reaction Status Date / Time azithromycin Allergy Hives Verified 09/21/16 16:17 cephalexin Allergy Swelling Verified 09/21/16 16:17 meperidine HCl [From Demerol] Allergy Airway Verified 09/21/16 16:17 Tightness Home Meds: Home Meds Gabapentin [Neurontin] 600 mg PO BID 10/31/13 [History] OXcarbazepine [Oxcarbazepine] 600 mg PO TID 10/31/13 [History] traMADol [Ultram ER] 50 - 100 mg PO Q8HR PRN 10/31/13 [History] Omeprazole 20 mg PO DAILY 05/29/14 [History] ALPRAZolam [Alprazolam] 0.5 mg PO DAILY PRN 10/23/15 [History] Levofloxacin 500 mg PO DAILY 09/21/16 [History] Polyethylene Glycol 3350 [MiraLAX] 17 gm PO DAILY PRN 09/21/16 [History] Potassium 1 tab PO DAILY 09/21/16 [History] oxyCODONE 5 mg PO Q6H PRN #22 tablet 09/23/16 [Rx] Past Medical History HEENT History: Reports: Cataract, Other (See Below) Other HEENT History: dry eyes Cardiovascular History: Reports: None Respiratory History: Reports: None Gastrointestinal History: Reports: None 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: Musculoskeletal History: Reports: None Neurological History: Reports: Other (See Below) Other Neuro History: trigeminal neuralgia Psychiatric History: Reports: None Endocrine/Metabolic History: Reports: None Hematologic History: Reports: None Immunologic History: Reports: None Oncologic (Cancer) History: Reports: None - Infectious Disease History Infectious Disease History: Reports: Measles - Past Surgical History HEENT Surgical History: Reports: Cataract Surgery GI Surgical History: Reports: Cholecystectomy, Hernia Repair/Other Social & Family History - Family History Family Medical History: Noncontributory - Tobacco Use Smoking Status *Q: Never Smoker Second Hand Smoke Exposure: No - Caffeine Use Caffeine Use: Reports: Coffee - Alcohol Use Days Per Week of Alcohol Use: 0 - Recreational Drug Use Recreational Drug Use: No - Living Situation & Occupation Living situation: Reports: , with Spouse Occupation: Retired Course - Vital Signs Last Recorded V/S: Last Vital Signs Temp 35.6 C 11/12/16 20:18 Pulse 97 11/12/16 20:18 Resp 18 11/12/16 20:18 BP 123/62 11/12/16 20:18 Pulse Ox 93 L 11/12/16 20:18 - Orders/Labs/Meds Orders: Active Orders 24 hr Category Date Time Status Peripheral IV Care [RC] . DIRECTED Care 11/12/16 17:44 Active Sodium Chloride 0.9% [Saline Flush] Med 11/12/16 17:44 Active 10 ml FLUSH ASDIRECTED PRN Peripheral IV Insertion Adult [OM.PC] Stat Oth 11/12/16 17:44 Ordered Medication Orders Sodium Chloride (Saline Flush) 10 ml FLUSH ASDIRECTED PRN PRN Reason: Keep Vein Open Last Admin: 11/12/16 18:04 Dose: 10 ml Meds: Medications Generic Name Dose Route Start Last Admin Trade Name Freq PRN Reason Stop Dose Admin Sodium Chloride 10 ml 11/12/16 17:44 11/12/16 18:04 Saline Flush FLUSH 10 ml ASDIRECTED PRN Administration Keep Vein Open Discontinued Medications Generic Name Dose Route Start Last Admin Trade Name Freq PRN Reason Stop Dose Admin Dexamethasone 8 mg 11/12/16 17:45 11/12/16 18:00 Dexamethasone IVPUSH 11/12/16 17:46 8 mg ONETIME ONE Administration Hydromorphone HCl 1 mg 11/12/16 17:45 11/12/16 18:04 Dilaudid IVPUSH 11/12/16 17:46 1 mg ONETIME ONE Administration Hydromorphone HCl 1 mg 11/12/16 18:32 11/12/16 18:49 Dilaudid IVPUSH 11/12/16 18:33 1 mg ONETIME ONE Administration Hydromorphone HCl 1 mg 11/12/16 19:33 11/12/16 19:49 Dilaudid IVPUSH 11/12/16 19:34 1 mg ONETIME ONE Administration Hydromorphone HCl 1 mg 11/12/16 21:25 11/12/16 21:42 Dilaudid IVPUSH 11/12/16 21:26 1 mg ONETIME ONE Administration Sodium Chloride 1,000 mls @ 999 mls/hr 11/12/16 17:45 11/12/16 17:59 Normal Saline IV 11/12/16 18:45 999 mls/hr .BOLUS ONE Administration Ondansetron HCl 4 mg 11/12/16 19:56 11/12/16 20:02 Zofran IV 11/12/16 19:57 4 mg ONETIME ONE Administration Phenytoin Sodium 125 mg 11/12/16 19:33 11/12/16 19:48 Phenytoin IVPUSH 11/12/16 19:34 125 mg ONETIME ONE Administration Departure - Departure Disposition: Home, Self-Care 01 Clinical Impression: Trigeminal neuralgia of right side of face - Discharge Information Instructions: Trigeminal Neuralgia Forms: ED Department Discharge Care Plan Goals: The patient was advised of the examination results during the visit. The patient was encouraged to follow-up with her specialist and primary care facility for continued evaluation and further treatment. If the patient has any additional symptoms or concerns, the patient should visit her primary care facility or return to the emergency department. <Chevy Zavala - Last Filed: 11/12/16 22:36> ED HPI GENERAL MEDICAL PROBLEM - History of Present Illness INITIAL COMMENTS - FREE TEXT/NARRATIVE: This 71 yo female patient reports to the ED with right sided trigeminal nerve pain. The patient has a history of similar symptoms in the past. The patient is being seen in the [facility] at the end of the month for surgical correction. Onset: Today Duration: Constant, Getting Worse Location: Reports: Face (right side) Quality: Reports: Ache Severity: Mild Improves with: Reports: None Worsens with: Reports: None Associated Symptoms: Reports: No Other Symptoms ED ROS GENERAL - Review of Systems Review Of Systems: ROS reveals no pertinent complaints other than HPI. ED EXAM, GENERAL - Physical Exam Exam: See Below Exam Limited By: No Limitations General Appearance: Alert, WD/WN, Severe Distress Eye Exam: Bilateral Eye: EOMI, Normal Inspection, PERRL Ears: Normal External Exam, Normal Canal, Hearing Grossly Normal, Normal TMs Nose: Normal Inspection, Normal Mucosa, No Blood Throat/Mouth: Normal Inspection, Normal Lips, Normal Teeth, Normal Gums, Normal Oropharynx, Normal Voice, No Airway Compromise Head: Facial Tenderness (right side) Neck: Normal Inspection, Supple, Non-Tender, Full Range of Motion Respiratory/Chest: No Respiratory Distress, Lungs Clear, Normal Breath Sounds, No Accessory Muscle Use, Chest Non-Tender Cardiovascular: Normal Peripheral Pulses, Regular Rate, Rhythm, No Edema, No Gallop, No JVD, No Murmur, No Rub GI/Abdominal: Normal Bowel Sounds, Soft, Non-Tender, No Organomegaly, No Distention, No Abnormal Bruit, No Mass (Female) Exam: Deferred Rectal (Female) Exam: Deferred Back Exam: Normal Inspection, Full Range of Motion, NT Extremities: Normal Inspection, Normal Range of Motion, Non-Tender, Normal Capillary Refill, No Pedal Edema Neurological: Alert, Oriented, Normal Cognition, Normal Reflexes Psychiatric: Normal Affect, Normal Mood Skin Exam: Warm, Dry, Intact, Normal Color, No Rash Lymphatic: No Adenopathy Departure - Departure Time of Disposition: 22:32 Condition: poor
[2016-11-12] MEDS ORDERED: Sodium Chloride 0.9% 10 ML Syringe FLUSH PRN (17:44)
[2016-11-12] MEDS ORDERED: Sodium Chloride 0.9% 1,000 ML IV ONE (17:45)
[2016-11-12] MEDS ORDERED: HYDROmorphone 1 MG/ML Syringe IVPUSH ONE ×4 (17:45→21:25)
[2016-11-12] MEDS ORDERED: Dexamethasone 4 MG/ML SDV IVPUSH ONE (17:45)
[2016-11-12] MEDS ORDERED: Phenytoin 250 MG/5 ML SDV IVPUSH ONE (19:33)
[2016-11-12] MEDS ORDERED: Ondansetron 4 MG/2 ML SDV IV ONE (19:56)
[2016-11-12 20:22] VITALS: BP 123/62
== END 2016-11-12 22:52 | disposition home or self-care (01) ==
LOC: DL.ED 16:11
DX: G50.0 Trigeminal neuralgia (principal); Z98.49 Cataract extraction status, unspecified eye; Z90.49 Acquired absence of other specified parts of digestive tract; Z98.890 Other specified postprocedural states; Z79.899 Other long term (current) drug therapy; Z88.8 Allergy status to other drugs, medicaments and biological substances; Z88.1 Allergy status to other antibiotic agents
CPT/HCPCS: 96361; 96374; 96375; 96376; 99283; J1100; J1165; J1170; J2405; J7030; J7050; 99284

== ENCOUNTER 2022-07-30 12:35 | Emergency (ER) | payer OTHER, MEDICARE ==
[2022-07-30 13:10] VITALS: BP 150/70; PULSE 67
[2022-07-30 14:02] LABS: ANION GAP 11.2 mEq/L (7-13); CHLORIDE,CL 92 mmol/L (98-107); SODIUM,NA 127 mmol/L (136-145)
[2022-07-30 14:04] LABS: ESTIMATED GFR 91 mL/min (>=60)
[2022-07-30] MEDS ORDERED: diphenhydrAMINE 50 MG/ML SDV IVPUSH ONE (14:11)
[2022-07-30] MEDS ORDERED: Sodium Chloride 0.9% 1,000 ML IV ONE (14:11)
[2022-07-30] MEDS ORDERED: Ketorolac 30 MG/ML SDV IVPUSH ONE (14:12)
== END 2022-07-30 17:23 | disposition home or self-care (01) ==
LOC: DL.ED 12:35
DX: G44.209 Tension-type headache, unspecified, not intractable (principal); K59.01 Slow transit constipation; E87.1 Hypo-osmolality and hyponatremia; Z88.1 Allergy status to other antibiotic agents; Z88.5 Allergy status to narcotic agent; Z79.899 Other long term (current) drug therapy
CPT/HCPCS: 36415; 74019; 80053; 80307; 81003; 82150; 82272; 83605; 83690; 83735; 84484; 85025; 86140; 96361; 96374; 96375; 99284; J1200; J1885; J7030

== ENCOUNTER 2022-12-12 04:53 | Emergency (ER) | payer MEDICARE, OTHER ==
[2022-12-12 05:40] VITALS: BP 168/85; PULSE 104
[2022-12-12 05:49] LABS: BASOPHILS PERCENT AUTO 0.2 % (0.0-1.0); EOSINOPHILS PERCENT AUTO 1.1 % (1.0-3.0); HEMATOCRIT 39.8 % (37.0-47.0); HEMOGLOBIN 13.3 g/dL (12.0-16.0); LYMPHOCYTES PERCENT AUTO 15.8 % (20.5-50.1); MEAN CORPUSCULAR HGB CONC 33.4 g/dL (33.0-35.0); MEAN CORPUSCULAR VOLUME 89.6 fL (80-100); MONOCYTES PERCENT AUTO 12.8 % (2-8); NEUTROPHILS PERCENT AUTO 70.1 % (42.2-75.2); PLATELET COUNT,PLT 250 10^3/uL (150-450); RED BLOOD CELL COUNT 4.44 10^6/uL (4.2-5.4)
[2022-12-12 05:58] LABS: ALANINE AMINOTRANSFERASE,ALT 41 U/L (14-59); ALBUMIN 3.1 g/dL (3.4-5.0); ALKALINE PHOSPHATASE 183 U/L (46-116); ASPARTATE AMNIOTRANSFERASE,AST 36 U/L (15-37); BILIRUBIN TOTAL 0.6 mg/dL (0.2-1.0); BLOOD UREA NITROGEN,BUN 8 mg/dL (7-18); BUN/CREATININE RATIO 11.6 (No establ ref range); CALCIUM 8.9 mg/dL (8.5-10.1); CARBON DIOXIDE,CO2 27 mmol/L (21-32); CHLORIDE,CL 92 mmol/L (98-107); CREATININE 0.69 mg/dL (0.55-1.02); GLUCOSE RANDOM 103 mg/dL (70-99); PROTEIN TOTAL,TP 8.2 g/dL (6.4-8.2); SODIUM,NA 129 mmol/L (136-145)
[2022-12-12 06:13] LABS: A/G RATIO 0.61; C-REACTIVE PROTEIN 25.6 mg/dL (0.0-0.9); ESTIMATED GFR 89 mL/min (>=60)
[2022-12-12 06:29] LABS: APPEARANCE,URINE SLIGHTLY CLOUDY (CLEAR); BILIRUBIN,URINE SMALL (NEGATIVE); COLOR,URINE DARK YELLOW (YELLOW); GLUCOSE,URINE NEGATIVE (NEGATIVE); KETONES,URINE >=160 (NEGATIVE); LEUKOCYTE ESTERASE,URINE NEGATIVE (NEGATIVE); NITRITE,URINE NEGATIVE (NEGATIVE); OCCULT BLOOD,URINE NEGATIVE (NEGATIVE); PH,URINE 7.5 (5.0-9.0); PROTEIN,URINE 30 (NEGATIVE)
[2022-12-12 06:36] LABS: AMORPHOUS SEDIMENT,URINE MODERATE /HPF (NOT SEEN); BACTERIA,URINE FEW /HPF (0-FEW/HPF); EPITHELIAL CELLS,URINE MODERATE /HPF (NOT SEEN); MUCUS,URINE MODERATE /LPF (NOT SEEN)
[2022-12-12 06:37] LABS: RBC,URINE 0-5 /HPF (0-5); WBC,URINE 0-5 /HPF (0-5/HPF)
== END 2022-12-12 07:15 | disposition home or self-care (01) ==
LOC: DL.ED 04:53
DX: R79.82 Elevated C-reactive protein (CRP) (principal); R10.30 Lower abdominal pain, unspecified; R19.7 Diarrhea, unspecified; J44.9 Chronic obstructive pulmonary disease, unspecified; E66.9 Obesity, unspecified; Z68.30 Body mass index [BMI] 30.0-30.9, adult; Z87.891 Personal history of nicotine dependence; Z79.899 Other long term (current) drug therapy
CPT/HCPCS: 36415; 80053; 81001; 85025; 86140; 99283; 99284

== ENCOUNTER 2023-06-08 21:52 | Emergency (ER) | payer MEDICARE, OTHER ==
[2023-06-08] MEDS ORDERED: Furosemide 20 MG Tab PO ONE (21:53)
[2023-06-08 22:31] VITALS: BP 135/65; PULSE 71
[2023-06-08 22:49] LABS: BASOPHILS PERCENT AUTO 0.4 % (0.0-1.0); EOSINOPHILS PERCENT AUTO 4.2 % (1.0-3.0); HEMATOCRIT 36.8 % (37.0-47.0); HEMOGLOBIN 11.7 g/dL (12.0-16.0); LYMPHOCYTES PERCENT AUTO 32.4 % (20.5-50.1); MEAN CORPUSCULAR HEMOGLOBIN 30.1 pg (27.0-34.0); MEAN CORPUSCULAR HGB CONC 31.8 g/dL (33.0-35.0); MEAN CORPUSCULAR VOLUME 94.6 fL (80-100); MONOCYTES PERCENT AUTO 12.8 % (2-8); NEUTROPHILS PERCENT AUTO 50.2 % (42.2-75.2); PLATELET COUNT,PLT 175 10^3/uL (150-450); RED BLOOD CELL COUNT 3.89 10^6/uL (4.2-5.4); WHITE BLOOD CELL COUNT,WBC 7.2 10^3/uL (5.0-10.0)
[2023-06-08 23:10] LABS: PTT,PARTIAL THROMBOPLSTIN TIME 27.4 SEC (22.0-34.0)
[2023-06-08 23:14] LABS: ALANINE AMINOTRANSFERASE,ALT 32 U/L (14-59); ALBUMIN 3.2 g/dL (3.4-5.0); ALKALINE PHOSPHATASE 135 U/L (46-116); ANION GAP 9.2 mEq/L (7-13); ASPARTATE AMNIOTRANSFERASE,AST 22 U/L (15-37); BILIRUBIN TOTAL 0.4 mg/dL (0.2-1.0); BLOOD UREA NITROGEN,BUN 12 mg/dL (7-18); BUN/CREATININE RATIO 19.4 (No establ ref range); C-REACTIVE PROTEIN 0.84 ng/dL (<=0.50); CALCIUM 8.5 mg/dL (8.5-10.1); CARBON DIOXIDE,CO2 32 mmol/L (21-32); CHLORIDE,CL 101 mmol/L (98-107); CREATININE 0.62 mg/dL (0.55-1.02); EST CRCL DRUG DOSING (CG) 58.19 mL/min; GLUCOSE RANDOM 91 mg/dL (70-99); LACTIC ACID 0.6 mmol/L (0.4-2.0); LIPASE 29 U/L (16-77); POTASSIUM,K 4.2 mmol/L (3.5-5.1); PROTEIN TOTAL,TP 6.8 g/dL (6.4-8.2); SODIUM,NA 138 mmol/L (136-145)
[2023-06-08 23:15] LABS: A/G RATIO 0.89; ESTIMATED GFR 91 mL/min (>=60); ETHANOL BLOOD MEDICAL < 3 mg/dL (0)
[2023-06-08 23:32] LABS: CORONAVIRUS COVID-19 NAA NEGATIVE (NEGATIVE); INFLUENZA A NAA NEGATIVE (NEGATIVE); INFLUENZA B NAA NEGATIVE (NEGATIVE); RESPIRATORY SYNCYTIAL VIR NAA NEGATIVE (NEGATIVE)
[2023-06-09] MEDS ORDERED: Azithromycin 250 MG Tab PO ONE (00:24)
[2023-06-09] MEDS ORDERED: predniSONE 20 MG Tab PO ONE (00:24)
[2023-06-09] MEDS ORDERED: Furosemide 20 MG Tab ONE (00:50)
== END 2023-06-09 01:01 | disposition home or self-care (01) ==
LOC: DL.ED 21:52
DX: J18.9 Pneumonia, unspecified organism (principal); J81.0 Acute pulmonary edema; J91.8 Pleural effusion in other conditions classified elsewhere; I10 Essential (primary) hypertension; J44.9 Chronic obstructive pulmonary disease, unspecified; Z88.1 Allergy status to other antibiotic agents; Z20.822 Contact with and (suspected) exposure to COVID-19; Z87.891 Personal history of nicotine dependence; Z88.8 Allergy status to other drugs, medicaments and biological substances; Z88.5 Allergy status to narcotic agent; Z79.899 Other long term (current) drug therapy
CPT/HCPCS: 0241U; 36415; 71045; 80053; 80307; 83605; 83690; 83880; 84484; 85025; 85379; 85610; 85730; 86140; 93005; 93010; 99284; 99285; A9270-GY; J7512

== ENCOUNTER 2024-10-22 21:36 | Emergency (ER) | payer MEDICARE, OTHER ==
[2024-10-22] MEDS: LORazepam 0.5 MG Tab PO ONE (22:11)
[2024-10-22 22:48] LABS: BASOPHILS PERCENT AUTO 0.6 % (0.0-1.0); EOSINOPHILS PERCENT AUTO 6.8 % (1.0-3.0); HEMATOCRIT 39.3 % (37.0-47.0); HEMOGLOBIN 13.2 g/dL (12.0-16.0); MEAN CORPUSCULAR HEMOGLOBIN 31.6 pg (27.0-34.0); MEAN CORPUSCULAR HGB CONC 33.6 g/dL (33.0-35.0); MONOCYTES PERCENT AUTO 11.3 % (2-8); NEUTROPHILS PERCENT AUTO 50.3 % (42.2-75.2); PLATELET COUNT,PLT 163 10^3/uL (150-450); RED BLOOD CELL COUNT 4.18 10^6/uL (4.2-5.4)
[2024-10-22 23:06] LABS: B-TYPE NATRIURETIC PEPTIDE,BNP 36 pg/ml (0-100)
[2024-10-22 23:08] VITALS: BP 159/79; PULSE 80
[2024-10-22 23:11] LABS: ALANINE AMINOTRANSFERASE,ALT 28 U/L (14-59); ALBUMIN 3.6 g/dL (3.4-5.0); ALKALINE PHOSPHATASE 149 U/L (46-116); ASPARTATE AMNIOTRANSFERASE,AST 18 U/L (15-37); BILIRUBIN TOTAL 0.5 mg/dL (0.2-1.0); BLOOD UREA NITROGEN,BUN 14 mg/dL (7-18); BUN/CREATININE RATIO 16.9 (No establ ref range); CALCIUM 9.3 mg/dL (8.5-10.1); CARBON DIOXIDE,CO2 28 mmol/L (21-32); CHLORIDE,CL 98 mmol/L (98-107); CREATININE 0.83 mg/dL (0.55-1.02); GLUCOSE RANDOM 98 mg/dL (70-99); LIPASE 44 U/L (16-77); POTASSIUM,K 4.6 mmol/L (3.5-5.1); PROTEIN TOTAL,TP 7.3 g/dL (6.4-8.2)
[2024-10-22 23:14] LABS: ANION GAP 9.6 mEq/L (7-13); SODIUM,NA 131 mmol/L (136-145)
[2024-10-22 23:15] LABS: ESTIMATED GFR 71 mL/min (>=60)
[2024-10-22 23:46] LABS: APPEARANCE,URINE CLEAR (CLEAR); BILIRUBIN,URINE NEGATIVE (NEGATIVE); GLUCOSE,URINE NEGATIVE (NEGATIVE); KETONES,URINE NEGATIVE (NEGATIVE); LEUKOCYTE ESTERASE,URINE NEGATIVE (NEGATIVE); NITRITE,URINE NEGATIVE (NEGATIVE); OCCULT BLOOD,URINE NEGATIVE (NEGATIVE); PROTEIN,URINE NEGATIVE (NEGATIVE); UROBILINOGEN,URINE 0.2 mg/dL (0.2-1.0)
[2024-10-22 23:47] LABS: COLOR,URINE LIGHT YELLOW (YELLOW)
== END 2024-10-23 00:04 | disposition home or self-care (01) ==
LOC: DL.ED 21:36
DX: F41.9 Anxiety disorder, unspecified (principal); I16.0 Hypertensive urgency; I10 Essential (primary) hypertension; E66.9 Obesity, unspecified; Z88.8 Allergy status to other drugs, medicaments and biological substances; Z79.82 Long term (current) use of aspirin; Z79.899 Other long term (current) drug therapy
CPT/HCPCS: 36415; 70450; 71045; 80053; 81003; 83605; 83690; 83735; 83880; 84484; 85025; 93005; 93010; 99284; 99285; A9270